=== PATIENT | male | born 1970 | race Caucasian/White ===

== ENCOUNTER 2018-02-09 22:15 | Emergency (ER) | payer OTHER, MEDICAID ==
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
[2018-02-09] MEDS ORDERED: CEPHALEXIN 500MG PREPACK#4 BTL TAKEHOME ONE (23:39)
[2018-02-09] MEDS ORDERED: HALOPERIDOL 10 MG TAB PO ONE (23:40)
[2018-02-09] MEDS ORDERED: OLANZapine DISINTEGR 10 MG TAB PO ONE (23:43)
[2018-02-10 00:31] VITALS: BP 131/62
== END 2018-02-10 00:05 | disposition home or self-care (01) ==
DX: F20.9 Schizophrenia, unspecified (principal); L73.9 Follicular disorder, unspecified; F17.200 Nicotine dependence, unspecified, uncomplicated